=== PATIENT | male | born 1980 | race Caucasian/White ===

== ENCOUNTER 2016-10-15 18:28 | Emergency (ER) | payer OTHER ==
[~2016-10-15 18:28] MED LIST: AMOXIL875 MG PO; ASPIRIN81 M2 PO; COREG PO; IMDUR-ER30 MG PO; LISINOPRIL20 MG PO; PLAVIX PO; ZOLOFT50 MG PO
== END 2016-10-15 19:55 | disposition home or self-care (01) ==
LOC: CED 18:28
DX: F10.129 Alcohol abuse with intoxication, unspecified (principal); I10 Essential (primary) hypertension; F17.210 Nicotine dependence, cigarettes, uncomplicated; Z86.79 Personal history of other diseases of the circulatory system; Z98.890 Other specified postprocedural states
CPT/HCPCS: 99282

== ENCOUNTER → 2016-10-16 01:00 | Emergency (ER) | payer OTHER ==
--- NOTE | ~2016-10-16 | CR72 ---
[facility] A Service of [facility] & [facility] RADIOLOGY TEXT RESULTS PATIENT: SALLY DUMONT LOCATION: [facility] : [birth year] UNIT #: [id number] AGE: [address]: AGUSTINA ER DOCTOR SEX: M ORDER DR: [id number] [facility] [address]. [place], [place] [address] [id number] E MR#: [id number] Acc #: [id number] NAME: SALLY DUMONT. : 1980 SEX: M STUDY DATE/TIME: 10/15/2016 23:04 UNIT: [facility] ROOM: STUDY DESCRIPTION: CR Chest Single View Portable Attending Physician: Er Doctor Agustina Ordering Physician: Ed Doctor [id number] Agustina Berrios Primary Care Physician: Primary Care Physician No MEDICAL IMAGING REPORT This report is preliminary unless electronic signature is present EXAM Portable chest 10/15/2016 at 23:04 HISTORY Cough and chest pain today. FINDINGS AP portable views of the chest compared with 01/24/2016. Cardiac and mediastinal contours are normal. Left side coronary stent is present. Patient also has an IVC filter. The lungs have an emphysematous appearance. Infiltrates are noted in the bases, worse on the left relative to the right. These are new since the prior radiographs and are compatible with pneumonia. No pneumothorax is seen. IMPRESSION 1. Bibasilar pneumonia, worse on the left relative to the right. 2. Radiographic at follow up until clear recommended. 3. Coronary artery disease. Dictated by... Shaggy Prakash Jr., M.D. THIS IS AN ELECTRONICALLY VERIFIED REPORT Shaggy Prakash Jr., M.D. at 10/16/2016 9:59 PM DILCIA/javier TD: 10/16/2016 06:47 JOB #: [id number] MEDICAL IMAGING REPORT COPY
== END | disposition left against medical advice (07) ==
LOC: CED 01:00
DX: Z53.21 Procedure and treatment not carried out due to patient leaving prior to being seen by health care provider (principal)
CPT/HCPCS: 71010

== ENCOUNTER 2016-12-07 23:59 | Emergency (ER) | payer OTHER | END 2016-12-08 00:45 | disposition left against medical advice (07) | LOC: CED 23:59 | DX: F10.229 Alcohol dependence with intoxication, unspecified (principal) | CPT/HCPCS: 99282 ==

== ENCOUNTER 2016-12-25 00:21 | Emergency (ER) | payer OTHER | END 2016-12-25 01:08 | disposition left against medical advice (07) | LOC: CED 00:21 | DX: Z53.21 Procedure and treatment not carried out due to patient leaving prior to being seen by health care provider (principal) ==

== ENCOUNTER 2017-01-10 11:09 | Emergency (ER) | payer OTHER ==
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
--- NOTE | ~2017-01-10 | EKG ---
PATIENT: SALLY DUMONT UNIT #: [id number] Ventricular Rate: 97 BPM Atrial Rate: 97 BPM P-R Interval: 150 ms QRS Duration: 96 ms Q-T Interval: 370 ms QTC Calculation(Bezet): 469 ms P Boston: 60 degrees Calculated R Boston: 76 degrees Calculated T Boston: 66 degrees Diagnosis Line: Normal sinus rhythm Diagnosis Line: Moderate voltage criteria for LVH, may be normal Diagnosis Line: variant Diagnosis Line: Borderline ECG Diagnosis Line: When compared with ECG of 01-JUN-2015 22:50, Diagnosis Line: No significant change was found Diagnosis Line: Confirmed by MARISA MAGALLANES MD ([id number]) on Diagnosis Line: 01/10/2017 2:12:16 PM INTERPRETING MD: LAINE
[2017-01-10 12:06] LABS: BASOPHIL# 0.1 X10e3 (0-0.3); BASOPHIL% 1.1 % (0-2.5); EOSINOPHIL% 0.5 % (0.0-7.0); HEMATOCRIT 29.9 % (38.0-50.0); HEMOGLOBIN 9.1 gm/dL (13.0-16.0); LYMPHOCYTE# 4.3 X10e3 (1.0-3.5); LYMPHOCYTE% 49.8 % (17.0-45.0); MEAN CELL VOLUME 86.3 FL (83-96); MEAN CORPUSCULAR HEMOGLOBIN 26.3 PG (28-34); MEAN CORPUSCULAR HGB CONC 30.4 g/dL (30-36); MEAN PLATELET VOLUME 9.3 FL (6.5-11.5); MONOCYTE# 0.4 X10e3 (0-1.0); MONOCYTE% 5.2 % (3.0-12.0); NEUTROPHIL# 3.7 X10e3 (1.5-7.1); NEUTROPHIL% 43.4 % (40-75); PLATELET COUNT 201 X10e3 (140-420); RED BLOOD COUNT 3.46 X10e (3.90-5.60); RED CELL DISTRIBUTION WIDTH 21.4 % (11.0-15.5); WHITE BLOOD COUNT 8.5 X10e3 (4.0-10.5)
[2017-01-10 12:12] LABS: DIFF IND NO
[2017-01-10 12:34] LABS: URINE SOURCE CLEAN CATCH
[2017-01-10 12:35] LABS: ALBUMIN SERUM 3.3 g/dL (3.5-5.0); BILIRUBIN, DIRECT 0.1 mg/dL (0.0-0.2); BILIRUBIN,INDIRECT 0.4 mg/dL (0.0-0.9); BILIRUBIN,TOTAL 0.5 mg/dL (0.2-2.0); BUN/CREATININE RATIO 18.33; CALCIUM SERUM 9.1 mg/dL (8.4-10.2); CREATININE SERUM 0.6 mg/dL (0.6-1.4); GLOM FILT RATE Estimated 128.5 mL/min (>60); PROTEIN TOTAL SERUM 7.2 g/dL (6.0-8.3)
[2017-01-10 12:42] LABS: URINE APPEARANCE CLEAR; URINE BILIRUBIN NEG (NEG); URINE BLOOD 3+ (NEG); URINE COLOR DK YELLOW; URINE GLUCOSE NEG (NEG); URINE KETONE TRACE (NEG); URINE LEUKOCYTE ESTERASE NEG (NEG); URINE NITRATE NEG (NEG); URINE PH 6.5 (5-8); URINE PROTEIN 3+ (NEG)
[2017-01-10 12:43] LABS: URBCS1 AUWI 50-100 /[HPF] (0-2); URINE BACTERIA AUWI NEG (NEGATIVE); URINE SQUAMOUS EPITHELIAL CELL NONE SEEN /[HPF]; UWBCS1 AUWI 0-2 (0-5)
[2017-01-10 12:49] LABS: CULTURE INDICATED? NO
== END 2017-01-10 12:59 | disposition home or self-care (01) ==
LOC: CED 11:09
PROVIDERS: Emergency Medicine
DX: R10.9 Unspecified abdominal pain (principal); F10.129 Alcohol abuse with intoxication, unspecified; Y90.8 Blood alcohol level of 240 mg/100 ml or more; E78.5 Hyperlipidemia, unspecified; I10 Essential (primary) hypertension; F17.200 Nicotine dependence, unspecified, uncomplicated; K21.9 Gastro-esophageal reflux disease without esophagitis; Z86.19 Personal history of other infectious and parasitic diseases; Z98.890 Other specified postprocedural states
CPT/HCPCS: 36415; 80048; 80076; 81003; 82150; 83690; 85025; 93005; 96361; 96374; 96375; 99284; G0480; J2405

== ENCOUNTER 2017-01-10 16:27 | Emergency (ER) | payer OTHER ==
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
== END 2017-01-11 01:45 | disposition home or self-care (01) ==
LOC: CED 16:27
DX: F10.129 Alcohol abuse with intoxication, unspecified (principal); J69.0 Pneumonitis due to inhalation of food and vomit; N20.2 Calculus of kidney with calculus of ureter
CPT/HCPCS: 36415; 74176; 84484; 99284

== ENCOUNTER 2017-01-26 03:16 | Emergency (ER) | payer OTHER ==
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
== END 2017-01-26 09:00 | disposition home or self-care (01) ==
LOC: CED 03:16
DX: S01.82XA Laceration with foreign body of other part of head, initial encounter (principal); S80.212A Abrasion, left knee, initial encounter; I10 Essential (primary) hypertension; E78.5 Hyperlipidemia, unspecified; F17.200 Nicotine dependence, unspecified, uncomplicated; W01.0XXA Fall on same level from slipping, tripping and stumbling without subsequent striking against object, initial encounter; Y92.9 Unspecified place or not applicable
CPT/HCPCS: 12011; 70450; 72125; 99284

== ENCOUNTER 2017-02-11 17:10 | Emergency (ER) | payer OTHER ==
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
--- NOTE | ~2017-02-11 | CT52 ---
[facility] A Service of [facility] RADIOLOGY TEXT RESULTS PATIENT: SALLY DUMONT LOCATION: [facility] : 78 UNIT #: [id number] AGE: [address]: Ede Newman MD SEX: M ORDER DR: [id number] [id number] [facility]. [place], [place] [address] [id number] E MR#: [id number] Acc #: [id number] NAME: SALLY DUMONT. : 1980 SEX: M STUDY DATE/TIME: 02/11/2017 20:01 UNIT: [facility] ROOM: STUDY DESCRIPTION: CT Cervical Spine Wo Cont Attending Physician: Ede Newman M.D. Ordering Physician: Magdalena Lake M.D. Primary Care Physician: Primary Care Physician No MEDICAL IMAGING REPORT This report is preliminary unless electronic signature is present EXAM CT cervical spine INDICATIONS EMS reports phone calls from [employer] because patient passed out in front of their store. The patient refused transport initially, but was unable to stand. Found empty EtOH liter bottle next to patient. EtOH intoxication. Abrasion, pain, right side forehead pain, swelling upper lip, headache, neck pain, slurred speech. TECHNIQUE CT cervical spine performed. Bone and soft tissue windows reviewed. Sagittal and coronal reconstructions performed. This CT exam was performed with one or more of the following radiation dose reduction techniques: automatic exposure control, adjustment of mA and/or kV according to patient size, and iterative reconstruction. COMPARISON 01/26/2017 FINDINGS Visualized portions of brain unremarkable. The visualized nasopharyngeal, oral pharyngeal, pharyngeal mucosal, retropharyngeal spaces, larynx, subglottic airway, lung apices clear. Metallic foreign body, subcutaneous tissues posterior upper neck unchanged. Carotid arterial calcifications. No acute appearing traumatic soft tissue abnormality in the neck. Cervical spine alignment normal. Vertebral body heights, intervertebral disc space heights. Facet joint relationships normal. No traumatic fracture or malalignment. C2-C3: Unremarkable. C3-C4: Posterior central disc bulge. Narrowing anterior thecal space. [facility] A Service of [facility] & [facility] RADIOLOGY TEXT RESULTS PATIENT: SALLY DUMONT [id number] [birth year] UNIT #: [id number] AGE: [address]: Ede Newman MD SEX: M ORDER DR: Mild central spinal canal narrowing. No definite cord contact. Neural foramina unremarkable. C4-C5: Minimal posterior disc bulge. No spinal stenosis. No change from prior study. Neural foramina unremarkable. C5-C6: Posterior osteophyte formations. No spinal stenosis or cord contact. Mild uncovertebral degenerative changes left greater than right. Mild left foraminal narrowing. C6-C7, C7-T1, T1-T2: Unremarkable. IMPRESSION 1. No traumatic fracture or malalignment. 2. Mild degenerative changes in the cervical spine. See details in body of report. No change in appearance compared to 01/26/2017. 3. Metallic foreign bodies subcutaneous soft tissues posterior superior neck unchanged and felt to reflect prior penetrating trauma. See complete details in body of report above. Dictated by... Kehinde High M.D. THIS IS AN ELECTRONICALLY VERIFIED REPORT Kehinde High M.D. at 02/12/2017 4:47 PM SALLY/colleen TD: 02/11/2017 23:22 JOB #: [id number] MEDICAL IMAGING REPORT Page 1 of 1 COPY
[2017-02-11 20:17] LABS: BILIRUBIN, DIRECT 0.3 mg/dL (0.0-0.2); BILIRUBIN,INDIRECT 0.6 mg/dL (0.0-0.9); BILIRUBIN,TOTAL 0.9 mg/dL (0.2-2.0); BUN/CREATININE RATIO 16.25; CREATININE SERUM 0.8 mg/dL (0.6-1.4); GLOM FILT RATE Estimated 114.2 mL/min (>60); PROTEIN TOTAL SERUM 8.5 g/dL (6.0-8.3)
[2017-02-11 21:20] LABS: BASOPHIL# 0.1 X10e3 (0-0.3); BASOPHIL% 0.9 % (0-2.5); HEMATOCRIT 32.8 % (38.0-50.0); HEMOGLOBIN 9.9 gm/dL (13.0-16.0); LYMPHOCYTE% 50.9 % (17.0-45.0); MEAN CELL VOLUME 89.1 FL (83-96); MEAN CORPUSCULAR HEMOGLOBIN 26.7 PG (28-34); MEAN PLATELET VOLUME 8.7 FL (6.5-11.5); MONOCYTE# 0.5 X10e3 (0-1.0); MONOCYTE% 5.2 % (3.0-12.0); NEUTROPHIL# 4.2 X10e3 (1.5-7.1); PLATELET COUNT 301 X10e3 (140-420); RED BLOOD COUNT 3.68 X10e (3.90-5.60); RED CELL DISTRIBUTION WIDTH 21.3 % (11.0-15.5); WHITE BLOOD COUNT 9.8 X10e3 (4.0-10.5)
[2017-02-11 21:24] LABS: DIFF IND YES
[2017-02-11 21:41] LABS: NUCLEATED RED BLOOD CELL 1 /100 (0)
[2017-02-11 21:42] LABS: PLATELET ESTIMATE NORMAL (NORMAL); SMUDGE CELLS 7 /100
[2017-02-11 21:43] LABS: POIKILOCYTOSIS SL; TEAR DROP CELLS PRESENT
== END 2017-02-12 01:29 | disposition home or self-care (01) ==
LOC: CED 17:10
PROVIDERS: Emergency Medicine
DX: F10.129 Alcohol abuse with intoxication, unspecified (principal); Y90.8 Blood alcohol level of 240 mg/100 ml or more; E78.5 Hyperlipidemia, unspecified; K21.9 Gastro-esophageal reflux disease without esophagitis; I10 Essential (primary) hypertension; K74.60 Unspecified cirrhosis of liver; F17.210 Nicotine dependence, cigarettes, uncomplicated; Z98.890 Other specified postprocedural states; Z93.3 Colostomy status
CPT/HCPCS: 36415; 70450; 70486; 72125; 80048; 80076; 82947; 85025; 99284; G0480

== ENCOUNTER 2017-02-12 05:27 | Emergency (ER) | payer OTHER | END 2017-02-12 06:15 | disposition home or self-care (01) | LOC: CED 05:27 | DX: K94.03 Colostomy malfunction (principal); F10.10 Alcohol abuse, uncomplicated; E78.5 Hyperlipidemia, unspecified; I10 Essential (primary) hypertension; F17.200 Nicotine dependence, unspecified, uncomplicated | CPT/HCPCS: 99282 ==

== ENCOUNTER 2017-02-28 00:19 | Emergency (ER) | payer OTHER ==
[~2017-02-28] VITALS: Ht 177.8 cm; Wt 81.6 kg
--- NOTE | ~2017-02-28 | EKG ---
PATIENT: SALLY DUMONT UNIT #: [id number] Ventricular Rate: 89 BPM Atrial Rate: 89 BPM P-R Interval: 174 ms QRS Duration: 92 ms Q-T Interval: 378 ms QTC Calculation(Bezet): 459 ms P [place]: 53 degrees Calculated R [place]: 71 degrees Calculated T [place]: 66 degrees Diagnosis Line: Normal sinus rhythm Diagnosis Line: Possible Left atrial enlargement Diagnosis Line: Borderline ECG Diagnosis Line: When compared with ECG of 10-JAN-2017 11:35, Diagnosis Line: No significant change was found Diagnosis Line: Confirmed by MARISA MAGALLANES MD ([id number]) on Diagnosis Line: 03/02/2017 8:06:04 PM INTERPRETING MD: LAINE
--- NOTE | ~2017-02-28 | CR72 ---
[facility] A Service of [facility] & [facility] RADIOLOGY TEXT RESULTS PATIENT: SALLY DUMONT LOCATION: [facility] : 78 UNIT #: [id number] AGE: [address]: Elina James MD SEX: M ORDER DR: [id number] [facility] [address] [facility]. [place], [place] [address] [id number] E MR#: [id number] Acc #: [id number] NAME: SALLY DUMONT : 1980 SEX: M STUDY DATE/TIME: 02/28/2017 01:26 UNIT: [facility] ROOM: STUDY DESCRIPTION: CR Chest Single View Portable Attending Physician: Elina James M.D. Ordering Physician: Seng Soriano M.D. Primary Care Physician: Primary Care Physician No MEDICAL IMAGING REPORT This report is preliminary unless electronic signature is present EXAM Portable chest, 02/28 at 01:26 INDICATION Shortness of air and weakness tonight. FINDINGS AP portable chest is compared with 10/15/2016. Cardiac and mediastinal contours are normal. Left side coronary stent is present. There may be a trace amount of left pleural fluid. The lungs are clear. No pneumothorax is seen. IVC filter is partially visible in the upper abdomen. IMPRESSION There may be a trace amount of left pleural fluid. No other evidence of active disease. Dictated by... Shaggy Prakash Jr., M.D. THIS IS AN ELECTRONICALLY VERIFIED REPORT Shaggy Prakash Jr., M.D. at 02/28/2017 8:51 PM DILCIA/estephania TD: 02/28/2017 11:58 JOB #: [id number] MEDICAL IMAGING REPORT Page 1 of 1 COPY
[2017-02-28 01:37] LABS: BASOPHIL# 0.2 X10e3 (0-0.3); BASOPHIL% 2.3 % (0-2.5); EOSINOPHIL% 0.5 % (0.0-7.0); HEMATOCRIT 29.7 % (38.0-50.0); LYMPHOCYTE# 3.8 X10e3 (1.0-3.5); LYMPHOCYTE% 57.8 % (17.0-45.0); MEAN CELL VOLUME 91.1 FL (83-96); MEAN CORPUSCULAR HEMOGLOBIN 27.5 PG (28-34); MEAN CORPUSCULAR HGB CONC 30.2 g/dL (30-36); MEAN PLATELET VOLUME 8.9 FL (6.5-11.5); MONOCYTE# 0.5 X10e3 (0-1.0); MONOCYTE% 8.2 % (3.0-12.0); NEUTROPHIL# 2.1 X10e3 (1.5-7.1); NEUTROPHIL% 31.2 % (40-75); PLATELET COUNT 289 X10e3 (140-420); RED BLOOD COUNT 3.26 X10e (3.90-5.60); RED CELL DISTRIBUTION WIDTH 22.3 % (11.0-15.5); WHITE BLOOD COUNT 6.7 X10e3 (4.0-10.5)
[2017-02-28 01:38] LABS: DIFF IND YES
[2017-02-28 01:45] LABS: POC - CKMB 1.9 ng/mL (0.0-7.9); POC - TROPONIN <0.05 ng/mL (<=0.05)
[2017-02-28 01:48] LABS: PROTHROMBIN TIME (PATIENT) 10.7 SECONDS (10.0-11.7)
[2017-02-28 01:56] LABS: ALBUMIN SERUM 3.1 g/dL (3.5-5.0); BILIRUBIN, DIRECT 0.1 mg/dL (0.0-0.2); BILIRUBIN,INDIRECT 0.8 mg/dL (0.0-0.9); BILIRUBIN,TOTAL 0.9 mg/dL (0.2-2.0); CALCIUM SERUM 9.1 mg/dL (8.4-10.2); GLOM FILT RATE Estimated 95.7 mL/min (>60); POTASSIUM 3.2 mmol/L (3.5-5.1); PROTEIN TOTAL SERUM 6.7 g/dL (6.0-8.3)
[2017-02-28 02:11] LABS: PLATELET ESTIMATE NORMAL (NORMAL)
[2017-02-28 02:12] LABS: HYPOCHROMIA MOD
[2017-02-28 05:19] LABS: POC - CKMB 1.1 ng/mL (0.0-7.9); POC - TROPONIN <0.05 ng/mL (<=0.05)
== END 2017-02-28 10:19 | disposition home or self-care (01) ==
LOC: CED 00:19
PROVIDERS: Emergency Medicine
DX: F10.129 Alcohol abuse with intoxication, unspecified (principal)
CPT/HCPCS: 36415; 71010; 80048; 80076; 82553; 84484; 85025; 85610; 85730; 93005; 96360; 99285; G0480

== ENCOUNTER 2017-03-10 18:45 | Emergency (ER) | payer OTHER ==
[~2017-03-10] VITALS: Ht 180.3 cm; Wt 63.5 kg
== END 2017-03-10 23:00 | disposition home or self-care (01) ==
LOC: CED 18:45
DX: K94.03 Colostomy malfunction (principal); F10.10 Alcohol abuse, uncomplicated; E78.5 Hyperlipidemia, unspecified; I10 Essential (primary) hypertension; F17.200 Nicotine dependence, unspecified, uncomplicated
CPT/HCPCS: 99283

== ENCOUNTER 2017-03-13 23:47 | Emergency (ER) | payer OTHER ==
[~2017-03-13] VITALS: Ht 180.3 cm; Wt 63.5 kg
[2017-05-07] MEDS ORDERED: MAGNESIUM400 M1 PO (15:14)
[2017-05-07] MEDS ORDERED: REMERON PO (15:15)
== END 2017-03-14 02:49 | disposition left against medical advice (07) ==
LOC: CED 23:47
DX: Z53.21 Procedure and treatment not carried out due to patient leaving prior to being seen by health care provider (principal)

== ENCOUNTER 2017-03-28 20:58 | Emergency (ER) | payer OTHER ==
[~2017-03-28] VITALS: Ht 157.5 cm; Wt 63.5 kg
--- NOTE | ~2017-03-28 | EKG ---
PATIENT: SALLY DUMONT UNIT #: [id number] Ventricular Rate: 94 BPM Atrial Rate: 94 BPM P-R Interval: 160 ms QRS Duration: 96 ms Q-T Interval: 388 ms QTC Calculation(Bezet): 485 ms P [place]: 64 degrees Calculated R [place]: 84 degrees Calculated T [place]: 75 degrees Diagnosis Line: Normal sinus rhythm Diagnosis Line: Voltage criteria for left ventricular hypertrophy Diagnosis Line: Prolonged QT Diagnosis Line: Abnormal ECG Diagnosis Line: No previous ECGs available Diagnosis Line: Confirmed by TANGELA MAO MD ([id number]) on 03/29/2017 Diagnosis Line: 6:01:04 PM INTERPRETING MD: DAYLIN SAMPSON
[2017-05-07] MEDS ORDERED: MAGNESIUM400 M1 PO (15:14)
[2017-05-07] MEDS ORDERED: REMERON PO (15:15)
== END 2017-03-29 02:02 | disposition home or self-care (01) ==
LOC: CED 20:58
DX: R10.9 Unspecified abdominal pain (principal); R07.9 Chest pain, unspecified; G89.29 Other chronic pain; R11.0 Nausea; F10.10 Alcohol abuse, uncomplicated; E78.5 Hyperlipidemia, unspecified; I10 Essential (primary) hypertension; F17.200 Nicotine dependence, unspecified, uncomplicated
CPT/HCPCS: 93005; 99284

== ENCOUNTER 2017-04-01 21:46 | Emergency (ER) | payer OTHER ==
[2017-05-07] MEDS ORDERED: MAGNESIUM400 M1 PO (15:14)
[2017-05-07] MEDS ORDERED: REMERON PO (15:15)
== END 2017-04-02 05:39 | disposition home or self-care (01) ==
LOC: CED 21:46
DX: F10.129 Alcohol abuse with intoxication, unspecified (principal); I10 Essential (primary) hypertension; F17.200 Nicotine dependence, unspecified, uncomplicated
CPT/HCPCS: 99283

== ENCOUNTER 2017-04-05 10:28 | Emergency (ER) | payer OTHER ==
[~2017-04-05] VITALS: Ht 165.1 cm; Wt 63.5 kg
[2017-05-07] MEDS ORDERED: MAGNESIUM400 M1 PO (15:14)
[2017-05-07] MEDS ORDERED: REMERON PO (15:15)
== END 2017-04-05 13:53 | disposition home or self-care (01) ==
LOC: CED 10:28
DX: F10.129 Alcohol abuse with intoxication, unspecified (principal); Y90.9 Presence of alcohol in blood, level not specified; F19.10 Other psychoactive substance abuse, uncomplicated; K21.9 Gastro-esophageal reflux disease without esophagitis; I10 Essential (primary) hypertension; F17.200 Nicotine dependence, unspecified, uncomplicated
CPT/HCPCS: 99284

== ENCOUNTER 2017-04-09 16:04 | Emergency (ER) | payer OTHER ==
[~2017-04-09] VITALS: Ht 180.3 cm; Wt 63.5 kg
[2017-05-07] MEDS ORDERED: MAGNESIUM400 M1 PO (15:14)
[2017-05-07] MEDS ORDERED: REMERON PO (15:15)
== END 2017-04-09 21:05 | disposition home or self-care (01) ==
LOC: CED 16:04
DX: F10.129 Alcohol abuse with intoxication, unspecified (principal); F17.200 Nicotine dependence, unspecified, uncomplicated
CPT/HCPCS: 99284; J2270; J2405

== ENCOUNTER 2017-04-09 22:28 | Emergency (ER) | payer OTHER ==
[~2017-04-09] VITALS: Ht 180.3 cm; Wt 63.5 kg
--- NOTE | ~2017-04-09 | EKG ---
PATIENT: SALLY DUMONT UNIT #: [id number] Ventricular Rate: 98 BPM Atrial Rate: 98 BPM P-R Interval: 158 ms QRS Duration: 80 ms Q-T Interval: 356 ms QTC Calculation(Bezet): 454 ms P [place]: 70 degrees Calculated R [place]: 81 degrees Calculated T [place]: 81 degrees Diagnosis Line: Normal sinus rhythm Diagnosis Line: Normal ECG Diagnosis Line: When compared with ECG of 29-MAR-2017 00:54, Diagnosis Line: No significant change was found Diagnosis Line: Confirmed by MARISA MAGALLANES MD ([id number]) on Diagnosis Line: 04/10/2017 4:46:07 PM INTERPRETING MD: LAINE
[2017-05-07] MEDS ORDERED: MAGNESIUM400 M1 PO (15:14)
[2017-05-07] MEDS ORDERED: REMERON PO (15:15)
== END 2017-04-10 06:10 | disposition home or self-care (01) ==
LOC: CED 22:28
DX: R07.89 Other chest pain (principal); F10.129 Alcohol abuse with intoxication, unspecified; Y90.9 Presence of alcohol in blood, level not specified; F17.200 Nicotine dependence, unspecified, uncomplicated
CPT/HCPCS: 93005; 99285